=== PATIENT | female | born 1985 | race Caucasian/White ===

== ENCOUNTER 2019-02-14 14:29 | Emergency (ER) | payer OTHER ==
[2019-02-14 14:56] VITALS: BP 110/65; PULSE 76; BMI 21.6
[2019-02-14] MEDS ORDERED: ACETAMINOPHEN 325 MG TABLET (FP) PO ONE ×2 (14:57→16:25)
[2019-02-14] MEDS ORDERED: ACETAMINOPHEN 325 MG TABLET (FP) ONE ×3 (15:08→16:11)
--- NOTE | 2019-02-14 15:17 | PDOC ---
Documentation entered by Desirae Epperson SCRIBE, acting as scribe for Yana Soto MD. Yana Soto MD: This documentation has been prepared by the abdirizakeZeenat Joy, SCRIBE, under my direction and personally reviewed by me in its entirety. I confirm that the documentation accurately reflects all work, treatment, procedures, and medical decision making performed by me. History of Present Illness - General Chief Complaint: Cold Symptoms Stated Complaint: COUGH Time Seen by Provider: 02/14/19 14:45 History Source: Patient - History of Present Illness Initial Comments: 02/14/19 15:29 HPI The patient is a 33 year old female with no past medical history of presenting with chest congestion and cough symptoms for 2 days, worse today. Patient endorses onset of shortness of breath, nonproductive cough, fevers and chills, body stiffness. Tmax today of 101. Patient states that her toddler at home has been sick since Sunday (02/10/19) with bronchiolitis Denies palpitation, dizziness, weakness, N, V, D, abdominal pain, bladder and bowel problems, focal weakness/paresthesias, leg swelling/pain, rash. No travel. No new changes in medications. No suspicious food intake. pt denies , checked earlier today at home and negative. Allergies: None Social history: Lives with family. No tobacco, ETOH or drug use. Meds: as documented in EMR Review of systems Constitutional: +fevers or chills. +malaise HEENT: +congestion. no headache or dizziness. No visual/hearing disturbances. CVS: no cp or syncope. Resp: +sob. +cough. +chest congestion. Gastrointestinal: no abdominal pain, nausea, vomiting, diarrhea. Genitourinary: no urinary sx, hematuria. MUSCULOSKELETAL: No joint pain and swelling. No neck or back pain. +body aches, myalgias. SKIN: no redness or skin changes, no discharge, no rash. No wounds. NEUROLOGIC: No headache, dizziness, LOC or altered mental status. No weakness, numbness or tingling. Allergies: no allergies. All other systems reviewed and negative, or as documented in HPI. Physical exam General: Well appearing, awake and alert, NAD. +coughing. HEENT: NCAT, PERRL, EOMI, clear conjunctiva, anicteric, moist mucus membranes, clear oropharynx, no oral lesions.. b/l T.M clear. normal phonation. Neck: neck supple, FROM, no meningeal signs or nuchal rigidity Resp: CTAB, normal and even respirations, no respiratory distress CVS: RRR, no murmurs, 2+ peripheral pulses throughout, no peripheral edema Abdomen: soft, NTND, no rebound or guarding. No CVAT. Back: nontender, normal inspection and ROM MSK: no edema, MARTÍNEZ x4, ROM intact. No clubbing or cyanosis. normal bulk and tone. Extremities: no calf tenderness Neuro: alert, oriented appropriately; no focal neurologic deficits Psych: Calm and cooperative Skin: very warm to touch and well perfused, cap refill <2 sec, normal color 02/14/19 16:21 02/14/19 18:08 02/14/19 18:10 Past History - Past Medical History Allergies/Adverse Reactions: Allergies Allergy/AdvReac Type Severity Reaction Status Date / Time No Known Allergies Allergy Verified 02/14/19 14:33 Home Medications: Ambulatory Orders Azithromycin 250 mg PO DAILY 4 Days #4 tablet 02/14/19 Fluoxetine HCl 20 mg PO DAILY 02/14/19 COPD: No - Psycho Social/Smoking Cessation Hx Smoking History: Never smoked Have you smoked in the past 12 months: No Information on smoking cessation initiated: No Hx Alcohol Use: Yes (1 DRINK PER DAY) Drug/Substance Use Hx: No *Physical Exam - Vital Signs Last Vital Signs Temp Pulse Resp BP Pulse Ox 101 F H 76 20 110/65 100 02/14/19 14:30 02/14/19 14:30 02/14/19 14:30 02/14/19 14:30 02/14/19 14:30 ED Treatment Course - RADIOLOGY Radiology Studies Ordered: Category Date Time Status CHEST PA & LAT [RAD] Stat Radiology 02/14/19 14:57 Taken - Medications Given in the ED: ED Medications Discontinued Medications Generic Name Dose Route Start Last Admin Trade Name Freq PRN Reason Stop Dose Admin Acetaminophen 650 mg 02/14/19 14:57 02/14/19 15:12 Tylenol - PO 02/14/19 14:58 650 mg ONCE ONE Administration Medical Decision Making - Medical Decision Making 02/14/19 15:15 Vital Signs Temp Pulse Resp BP Pulse Ox 101 F H 76 20 110/65 100 02/14/19 14:30 02/14/19 14:30 02/14/19 14:30 02/14/19 14:30 02/14/19 14:30 Vital signs reviewed, she is febrile T-max 101.0, normotensive, saturations 100 % on room air, normal saturations and normotensive. Differential diagnosis includes viral syndrome, bronchitis, influenza, pneumonia, sinus infection. Patient is able to speak full sentences, will check influenza and chest x-ray Chest x-ray appears clear, no evidence of pneumothorax, trachea is midline, no infiltrate/edema is noted, no effusion or consolidation fever improved, given appropriate meds, tylenol/ibuprofen. first dose of azithromycin for clinical pna with fever and respiratory sx, cxr can lag clinical sx, also sick child with similar sx. VS improved, defervesced. kenroy PO intake, remains well, nontoxic appearing. respiratory precautions, supportive care and hydration antipyretics hand hygiene. Pt to be discharged in stable condition. Patient and family made aware of clinical impression, treatment recommendations and disposition plan, return precautions discussed (including but not limited to new or persistent/worsening symptoms, pain, fevers, or signs of infection, chest pain, respiratory distress , inability to tolerate oral intake, dehydration, syncope, or neurologic changes ). Follow up with PMD as recommended, follow up information provided, take medications as instructed for duration of time. continue with supportive care, avoid triggers and precipitants. All questions answered to patient's satisfaction and expressed understanding and comfort with this. At the time of discharge, the patient is alert, clinically improved, tolerating po and verbalizes understanding of instructions, satisfied with the care received and felt comfortable with the plan. Patient does not suffer from an acute life- threatening medical condition at this time and is safe for outpatient follow- up. flu test 02/14/19 18:09 02/14/19 18:10 Discharge - Discharge Information Problems reviewed: Yes Clinical Impression/Diagnosis: Pneumonia Fever Qualifiers: Fever type: due to other condition Qualified Code(s): R50.81 - Fever presenting with conditions classified elsewhere Condition: Stable Disposition: HOME - Admission No - Additional Discharge Information Prescriptions: Azithromycin 250 mg PO DAILY 4 Days #4 tablet - Follow up/Referral Referrals: [facility] [place] [Provider Group] [facility] [Provider Group] - Patient Discharge Instructions Patient Printed Discharge Instructions: DI for Pneumonia -- Adult, DI for Acute Bronchitis Additional Instructions: flu test is negative this could be early pneumonia vs viral infection, will treat you with azithromycin x 4 more days, first dose is here. take tylenol/motrin every 6 hours as needed for fever/pain. salt water gargles, 1-2 spoonful of honey and warm lemon tea is appropriate as well for soothing qualities for sore throat/cough. minimize spread of infection given contagious nature, and cover your mouth and wash your hands adequately with soap and water. Stay well hydrated and rest. Cool air - walk around outdoors in the evening. May also try hot shower steam. This can alleviate the congestion and cough. Return precautions include respiratory distress, difficulty breathing, cyanosis , chest pain, lethargy, confusion, dehydration, high fevers or pain. - Post Discharge Activity Work/Back to School Note: Back to Work
[2019-02-14] MEDS ORDERED: IBUPROFEN 600 MG TABLET (FP) PO ONE ×2 (16:11→16:25)
[2019-02-14] MEDS ORDERED: AZITHROMYCIN 250 MG TABLET PO ONE (16:25)
[2019-02-14] MEDS ORDERED: AZITHROMYCIN 250 MG TABLET ONE (16:36)
[2019-02-14 16:55] VITALS: TEMP 100
== END 2019-02-14 16:57 | disposition home or self-care (01) ==
LOC: FER 14:29
DX: J18.9 Pneumonia, unspecified organism (principal); R50.81 Fever presenting with conditions classified elsewhere
CPT/HCPCS: 71046-TC-FY; 87804; 99282-25